=== PATIENT | female | born 2000 | race Caucasian/White ===

== ENCOUNTER 2018-06-03 18:52 | Emergency (ER) | payer OTHER ==
[2018-06-03 19:23] LABS: URINE PH (Dip) POC 7.5 (5.0-8.5)
[2018-06-03 19:23] LABS: URINE BLOOD (Dip) POC Negative (NEGATIVE); URINE GLUCOSE (Dip) POC Negative (NEGATIVE); URINE KETONES (Dip) POC Negative (NEGATIVE); URINE LEUKOCYTE EST (Dip) POC Trace (NEGATIVE); URINE NITRITE (Dip) POC Negative (NEGATIVE); URINE TOTAL PROTEIN POC Trace (NEGATIVE)
[2018-06-03] MEDS: IBUPROFEN 600 MG TAB PO (19:30)
== END 2018-06-03 20:18 | disposition home or self-care (01) ==
LOC: FTE 18:52
DX: N39.0 Urinary tract infection, site not specified (principal)
CPT/HCPCS: 81003; 81025; 99283

== ENCOUNTER 2018-10-04 15:24 | Emergency (ER) | payer OTHER ==
[2018-10-04] MEDS: KETOROLAC 30 MG INJ IM (16:23)
== END 2018-10-04 16:56 | disposition home or self-care (01) ==
LOC: FTE 15:24
DX: R51 Headache (principal)
CPT/HCPCS: 81025; 96372; 99284-25